=== PATIENT | male | born 1960 | race Two or more races ===

== ENCOUNTER 2019-05-15 15:13 | Inpatient (IN) | payer MEDICAID, OTHER ==
[~2019-05-15] VITALS: Ht 182.9 cm; Wt 99.2 kg
[2019-05-15 16:05] LABS: Basophils # (auto) 0 10 ^3/uL (0-0.2); Basophils % (auto) 0.2 % (0.0-2.0); Eosinophils # (auto) 0 10 ^3/uL (0-0.8); Hematocrit 38.8 % (41.0-53.0); Hemoglobin 12.1 g/dL (13.5-17.5); Lymphocytes # (auto) 0.6 10 ^3/uL (0.4-5.4); Lymphocytes % (auto) 4.9 % (10.0-50.0); Mean Corpuscular Hemoglobin 27.3 pg (28.0-32.0); Mean Corpuscular Hgb Conc. 31.2 g/dL (32.0-36.0); Mean Corpuscular Volume 87.5 fL (80.0-100.0); Monocytes # (auto) 0.9 10 ^3/uL (0-1.3); Monocytes % (auto) 7.4 % (0.0-12.0); Neutrophils % (auto) 87.5 % (37.0-80.0); Platelet Count (auto) 297 10^3/uL (140-450); Red Blood Cells 4.43 10^6/uL (4.5-5.90); Red Cell Distribution Width 18.1 % (11.8-14.3); White Blood Cell 12.6 10^3/uL (4.4-10.8)
[2019-05-15 16:23] LABS: Albumin 3.8 g/dL (3.4-5.0); Calcium 8.6 mg/dL (8.5-10.1)
[2019-05-15 16:28] LABS: BUN/Creatinine Ratio 9.9; Bilirubin, Total 0.4 mg/dL (0.2-1.0); Total Protein 7.9 g/dL (6.4-8.2)
[2019-05-15] MEDS ORDERED: SODIUM CHLORIDE 0.9% 1,000 ML IV ONE ×2 (16:30→19:30)
[2019-05-15] MEDS ORDERED: HYDROmorphone HCL 2 MG/ML VL IV ONE (16:30)
[2019-05-15] MEDS ORDERED: ONDANSETRON HCL 4 MG/2 ML VIAL IV ONE (16:30)
[2019-05-15 16:34] LABS: Potassium 5.9 mmol/L (3.5-5.1)
[2019-05-15] MEDS ORDERED: SODIUM ZIRCONIUM CYCL 10 GM PAK PO ONE (16:45)
[2019-05-15] MEDS ORDERED: ETOMIDATE (2MG/ML) 20ML VIAL IV ONE (16:45)
[2019-05-15] MEDS ORDERED: KETOROLAC TROMETH 15 mg/ml 1ML VL IV ONE (20:30)
[2019-05-15] MEDS ORDERED: ACETAMINOPHEN 325 MG TAB PO PRN (21:30)
[2019-05-15] MEDS ORDERED: ONDANSETRON HCL 4 MG/2 ML VIAL IV PRN (21:30)
[2019-05-15] MEDS ORDERED: TEMAZEPAM 15 MG CAP PO PRN (21:30)
[2019-05-15 21:49] LABS: Hematocrit 31.2 % (41.0-53.0); Hemoglobin 10.4 g/dL (13.5-17.5)
[2019-05-15] MEDS ORDERED: SODIUM CHLORIDE 0.9% 500 ML IV ONE (22:00)
[2019-05-15] MEDS ORDERED: SODIUM CHLORIDE 0.9% 1,000 ML IV SCH (22:00)
[2019-05-15 22:07] LABS: BUN/Creatinine Ratio 15.9; Calcium 7.2 mg/dL (8.5-10.1); Potassium 4.8 mmol/L (3.5-5.1)
--- NOTE | 2019-05-15 23:05 | NUR ---
MS admit from ER [facility]OR[facility] admitted to [facility]. Patient oriented to Sonido Tinsley, primary RN, unit, room, bed, and unit policies regarding patient care and visiting hours. Patient weighed by bedscale and encouraged to call if they need something. Right arm is in sling. The patient c/o 5/10 right shoulder pain and requested medication to relieve pain. Will treat with PRN [place] and reassess. All questions and concerns addressed, patient verbalized understanding.
[2019-05-15] MEDS: HYDROcodone-ACET 5/325MG TAB PO PRN (23:35)
[2019-05-16] VITALS (8 sets, daily range): BP systolic 123–142; BP diastolic 57–87
--- NOTE | 2019-05-16 00:20 | NUR ---
Patient's temperature reassessed and is 99.0 F. Patient asymptomatic. Addendum: 05/17/19 at 0329 by María Dalton RN Correct date is 05/17/19 and correct time is 0000
--- NOTE | 2019-05-16 00:35 | NUR ---
PAIN REASSESSMENT The patient states that his pain has improved after taking the [place]. Currently rates his right shoulder pain 2/10. Will continue to monitor the patient' status.
[2019-05-16] MEDS: PANTOPRAZOLE 40 MG/10 ML VIAL INJ IV SCH ×3 (00:45→21:18)
[2019-05-16] MEDS ORDERED: PANTOPRAZOLE 40 MG/10 ML VIAL INJ IV ONE (00:45)
[2019-05-16] MEDS ORDERED: ATORVASTATIN 20 MG TAB PO ONE (00:45)
--- NOTE | 2019-05-16 01:00 | NUR ---
Patient has been placed on tele. Will retrieve tele box from [facility] room.
--- NOTE | 2019-05-16 01:10 | NUR ---
Tele box #72 has been received and placed on the patient. Patient is ST with a heart rate of 103. Will continue to monitor the patient's status.
[2019-05-16 05:59] LABS: Basophils # (auto) 0 10 ^3/uL (0-0.2); Basophils % (auto) 0.4 % (0.0-2.0); Eosinophils # (auto) 0 10 ^3/uL (0-0.8); Eosinophils % (auto) 0.1 % (0.0-7.0); Hematocrit 28.3 % (41.0-53.0); Hemoglobin 9.4 g/dL (13.5-17.5); Lymphocytes # (auto) 1.9 10 ^3/uL (0.4-5.4); Lymphocytes % (auto) 14.1 % (10.0-50.0); Mean Corpuscular Hemoglobin 28.3 pg (28.0-32.0); Mean Corpuscular Hgb Conc. 33.2 g/dL (32.0-36.0); Mean Corpuscular Volume 85.3 fL (80.0-100.0); Monocytes # (auto) 1.1 10 ^3/uL (0-1.3); Monocytes % (auto) 8.4 % (0.0-12.0); Neutrophils # (auto) 10.1 10 ^3/uL (1.6-8.6); Platelet Count (auto) 195 10^3/uL (140-450); Red Blood Cells 3.31 10^6/uL (4.5-5.90); Red Cell Distribution Width 17.3 % (11.8-14.3); White Blood Cell 13.1 10^3/uL (4.4-10.8)
[2019-05-16 06:18] LABS: Potassium 4.7 mmol/L (3.5-5.1)
[2019-05-16 06:26] LABS: Albumin 2.6 g/dL (3.4-5.0); BUN/Creatinine Ratio 19.2; Bilirubin, Total 0.5 mg/dL (0.2-1.0); Calcium 6.7 mg/dL (8.5-10.1); Total Protein 5.6 g/dL (6.4-8.2)
--- NOTE | 2019-05-16 08:00 | NUR ---
Opening Shift Note Assumed care of patient, awake and alert. No S/S of distress/SOB. Patient c/o pain to the right shoulder, rates it 3/10. Will medicate per MD orders. Instructed on POC and to call for assist PRN. Bed at lowest locked position and call light within reach. Will continue to monitor for changes Q1hr and PRN.
[2019-05-16] MEDS: HYDROcodone-ACET 5/325MG TAB PO PRN ×2 (09:24→16:25)
[2019-05-16] MEDS ORDERED: SODIUM CHLORIDE 0.9% 1,000 ML IV SCH (09:45)
[2019-05-16] MEDS ORDERED: PANTOPRAZOLE 40 MG/10 ML VIAL INJ IV SCH (10:00)
--- NOTE | 2019-05-16 12:10 | NUR ---
Patient is required to be NPO for abdomen US. Patient informed and verbalized understanding.
[2019-05-16 13:10] LABS: Hematocrit 26.6 % (41.0-53.0); Hemoglobin 8.7 g/dL (13.5-17.5)
--- NOTE | 2019-05-16 13:20 | NUR ---
Attempted IV insertion ti left forearm, x3 times. no IV access obtained. Patient tolerated well.
[2019-05-16 13:31] LABS: BUN/Creatinine Ratio 24.9; Calcium 7.1 mg/dL (8.5-10.1); Potassium 4.1 mmol/L (3.5-5.1)
--- NOTE | 2019-05-16 14:00 | NUR ---
IV insertion by Latosha PONCE IV access obtained, via clean sterile technique by inserting 22 gauge catheter at left AC after 2 attempts. IV secured properly. No trauma to site. Patient tolerated well.
--- NOTE | 2019-05-16 16:15 | NUR ---
Patient c/o right shoulder pain, rates it 07/13, will medicate per MD orders. Addendum: 05/16/19 at 1820 by Jazmyne Sepulveda RN re-assessed pain at 17:20, patient states Pain level is at 3/10 and he feels comfortable.
[2019-05-16] MEDS: SODIUM CHLORIDE 0.9% 1,000 ML IV SCH ×2 (16:26→21:18)
--- NOTE | 2019-05-16 18:07 | NUR ---
Urine sample collected and sent to lab via [employer] system.
[2019-05-16 18:13] LABS: Cholesterol 98 mg/dL (< 200)
[2019-05-16 18:15] LABS: HDL Cholesterol 37 mg/dL (40-59); LDL Cholesterol 47 mg/dL (< 100); Triglycerides 128 mg/dL (< 150)
--- NOTE | 2019-05-16 18:15 | NUR ---
Rounds [employer]PER[employer]'s brought patient his dinner tray and patient ate it. Patient was aware of NPO status for upcoming Ultrasound and still ate. will notify radiology department. Addendum: 05/16/19 at 1855 by Jazmyne Sepulveda RN gi tech aware. Test has been postponed until tomorrow 05/17/19. Patient will be placed NPO after midnight. Patient informed/aware. Will notify LASHON PONCE.
[2019-05-16 18:54] LABS: Urine Bacteria NONE SEEN /hpf (None Seen); Urine Blood TRACE /uL (Negative); Urine Specific Gravity 1.019 (1.001-1.035); Urine WBC 2 /hpf (0 - 3)
[2019-05-16 19:09] LABS: Protein, Urine 30.2 mg/dL (0.0-11.9)
--- NOTE | 2019-05-16 20:10 | NUR ---
Opening Shift Note Assumed care of patient, awake and alert. No S/S of distress/SOB or pain. Patient is on 2 liters of oxygen via nasal cannula. Instructed on POC and to call for assist PRN, will continue to monitor for changes Q1hr and PRN. Patient has sling to right arm.
--- NOTE | 2019-05-16 20:15 | NUR ---
Fermin Fan called to give order to keep patient NPO after clear liquid breakfast tomorrow (05/17/19) for possible EGD for tomorrow (05/17/19).
[2019-05-16] MEDS: ATORVASTATIN 20 MG TAB PO SCH (21:18)
[2019-05-16] MEDS: SUCRALFATE 1 GM/10 ML ORAL SUSP PO SCH (21:18)
--- NOTE | 2019-05-16 23:13 | NUR ---
Temperature reassessed and is 99.3 F. Cooling measures taken: ice packs placed underneath patient's armpits, cool wash cloth applied to patient's forehead, and one blanket removed from patient. Patient refuses to remove other blanket and sheet. Will continue to monitor.
--- NOTE | 2019-05-17 00:20 | NUR ---
Patient's temperature reassessed and is 99.0 F. Patient asymptomatic.
[2019-05-17 05:00] VITALS: BP 125/82
[2019-05-17] MEDS: HYDROcodone-ACET 5/325MG TAB PO PRN ×5 (06:17→21:27)
--- NOTE | 2019-05-17 06:19 | NUR ---
PAIN PATIENT STATES PAIN TO RIGHT ARM IS 6/10. PATIENT REQUESTED NORCO NORCO ADMINISTERED ORDERED. SEE EMAR
[2019-05-17 06:21] LABS: Basophils # (auto) 0 10 ^3/uL (0-0.2); Basophils % (auto) 0.3 % (0.0-2.0); Eosinophils # (auto) 0 10 ^3/uL (0-0.8); Eosinophils % (auto) 0.5 % (0.0-7.0); Hemoglobin 7.8 g/dL (13.5-17.5); Lymphocytes # (auto) 1.7 10 ^3/uL (0.4-5.4); Lymphocytes % (auto) 18.7 % (10.0-50.0); Mean Corpuscular Hemoglobin 28.6 pg (28.0-32.0); Mean Corpuscular Hgb Conc. 33.8 g/dL (32.0-36.0); Mean Corpuscular Volume 84.5 fL (80.0-100.0); Monocytes # (auto) 0.7 10 ^3/uL (0-1.3); Monocytes % (auto) 7.7 % (0.0-12.0); Neutrophils # (auto) 6.5 10 ^3/uL (1.6-8.6); Neutrophils % (auto) 72.8 % (37.0-80.0); Platelet Count (auto) 168 10^3/uL (140-450); Red Blood Cells 2.72 10^6/uL (4.5-5.90); Red Cell Distribution Width 17.6 % (11.8-14.3); White Blood Cell 8.9 10^3/uL (4.4-10.8)
[2019-05-17] MEDS: SUCRALFATE 1 GM/10 ML ORAL SUSP PO SCH ×4 (06:27→21:27)
--- NOTE | 2019-05-17 06:30 | NUR ---
IV insertion IV access obtained, via clean sterile technique by inserting 22 gauge catheter at left hand after 2 attempts by Emilee PONCE. IV secured properly. No trauma to site. Patient tolerated well.
[2019-05-17 06:35] LABS: BUN/Creatinine Ratio 30.3; Calcium 7.7 mg/dL (8.5-10.1); Magnesium 2.3 mg/dL (1.6-2.6); Potassium 3.9 mmol/L (3.5-5.1)
--- NOTE | 2019-05-17 07:00 | NUR ---
CLOSING NOTE No S/S of distress/SOB or pain. Patient is on 2 liters of oxygen via nasal cannula. Patient has sling on right arm.
--- NOTE | 2019-05-17 07:30 | NUR ---
Per Dr. Christensen, requesting cardiac clearance for EGD procedure. Will notify pre-op. Addendum: 05/17/19 at 0900 by Jazmyne Sepulveda RN Pre-op aware/informed.
--- NOTE | 2019-05-17 07:35 | NUR ---
Opening shift note Assumed care of patient form primary care nurse María. Patient lying down with eyes closed. Respirations even and non-labored with no s/s of distress. IV flush, patent and intact. Bed in lowest position, wheels locked, with side rails up x2. Patient resting, will continue to monitor.
[2019-05-17 08:00] VITALS: BP 107/74
[2019-05-17] MEDS: SODIUM CHLORIDE 0.9% 1,000 ML IV SCH ×2 (08:00→18:36)
--- NOTE | 2019-05-17 08:00 | NUR ---
patient to stay NPO until after stress-test. Patient informed/ aware.
[2019-05-17] MEDS ORDERED: LIDOCAINE VISCOUS 2% 15ML UD ONE (08:33)
[2019-05-17] MEDS ORDERED: fentaNYL CITRATE 100 MCG/2 ML VL ONE (08:33)
[2019-05-17] MEDS ORDERED: SODIUM CHLORIDE LOCK 10 ML ONE (08:33)
[2019-05-17] MEDS ORDERED: diphenhdrAMINE HCL 50 MG/1 ML VL ONE (08:33)
[2019-05-17] MEDS ORDERED: MIDAZOLAM HCL 5 MG/ML-1ML VIAL ONE (08:33)
[2019-05-17 08:47] VITALS: BP 107/74
[2019-05-17] MEDS ORDERED: ADENOSINE 81 MG in GIVE UN-DILUTED 0 ML IV ONE (09:00)
[2019-05-17] MEDS: PANTOPRAZOLE 40 MG/10 ML VIAL INJ IV SCH ×2 (09:54→21:26)
--- NOTE | 2019-05-17 10:00 | NUR ---
Dr. Ugalde at bedside.
--- NOTE | 2019-05-17 10:45 | NUR ---
Patient stress test
[2019-05-17 10:50] LABS: INR 0.98 (0.9-1.15); Partial Thromboplastin Time 24.6 sec (23.64-32.05)
--- NOTE | 2019-05-17 13:26 | NUR ---
Patient returned Patient sitting up eating lunch and requesting water. No c/o pain or s/s of distress. Provided water/ice in pitcher. Will continue to monitor.
--- NOTE | 2019-05-17 14:00 | NUR ---
Dr. Richard at bedside. requesting to page AL Bernal for cardiac clearance. Awaiting call back. Addendum: 05/17/19 at 1425 by Jazmyne Sepulveda RN AL Bernal aware/informed .
[2019-05-17 16:39] VITALS: BP 105/69
--- NOTE | 2019-05-17 18:51 | NUR ---
closing Note Patient is comforttably resting on bed. No s/s of distress noted/stated. Patient c/o mild right shoulder pain, rates it 3/10. Patient requesting [place]. Pain medications are not due per MD orders. Will endorse to LASHON RN.
--- NOTE | 2019-05-17 19:41 | NUR ---
Opening Shift Note Received report and assumed care of patient. Patient is awake and alert. No signs or symptoms of distress noted. Instructed patient on plan of care and to call for assistance as needed. Will continue to monitor.
[2019-05-17] MEDS: ATORVASTATIN 20 MG TAB PO SCH (21:27)
[2019-05-17 22:00] VITALS: BP 127/79
[2019-05-18] VITALS (11 sets, daily range): BP systolic 104–135; BP diastolic 68–80
[2019-05-18] MEDS: HYDROcodone-ACET 5/325MG TAB PO PRN ×4 (04:08→22:45)
[2019-05-18] MEDS: SODIUM CHLORIDE 0.9% 1,000 ML IV SCH ×2 (05:00→16:38)
--- NOTE | 2019-05-18 05:00 | NUR ---
IV removal Patient removed 22 g IV to the left hand, stated he didn't want the needle to hurt him. Educated patient regarding IV, patient verbalized understanding. IV catheter tip noted to be intact, patient had applied pressure dressing. No bleeding noted. Will continue to monitor.
[2019-05-18 05:35] LABS: Basophils # (auto) 0 10 ^3/uL (0-0.2); Eosinophils # (auto) 0.1 10 ^3/uL (0-0.8); Eosinophils % (auto) 1.1 % (0.0-7.0); Hematocrit 20.7 % (41.0-53.0); Mean Corpuscular Hemoglobin 28.3 pg (28.0-32.0); Monocytes # (auto) 0.6 10 ^3/uL (0-1.3); Neutrophils # (auto) 5.1 10 ^3/uL (1.6-8.6); White Blood Cell 7.8 10^3/uL (4.4-10.8)
[2019-05-18 05:37] LABS: Basophils % (auto) 0.4 % (0.0-2.0); Lymphocytes % (auto) 25.8 % (10.0-50.0); Mean Corpuscular Hgb Conc. 33.3 g/dL (32.0-36.0); Monocytes % (auto) 7.1 % (0.0-12.0); Neutrophils % (auto) 65.6 % (37.0-80.0); Platelet Count (auto) 169 10^3/uL (140-450); Red Blood Cells 2.44 10^6/uL (4.5-5.90); Red Cell Distribution Width 17.5 % (11.8-14.3)
[2019-05-18 05:52] LABS: Potassium 3.8 mmol/L (3.5-5.1)
[2019-05-18 05:58] LABS: Hemoglobin 6.9 g/dL (13.5-17.5)
[2019-05-18 06:01] LABS: BUN/Creatinine Ratio 21.5; Calcium 7.6 mg/dL (8.5-10.1); Magnesium 2.3 mg/dL (1.6-2.6)
--- NOTE | 2019-05-18 06:29 | NUR ---
Low Hemoglobin Level Patient hemoglobin level 6.9. Paged Dr. Ugalde, spoke with Doug Martell. New orders to infuse 2 units of blood, orders read back and verified, will carry out.
[2019-05-18] MEDS: SUCRALFATE 1 GM/10 ML ORAL SUSP PO SCH ×4 (06:32→21:54)
--- NOTE | 2019-05-18 08:00 | NUR ---
Opening Shift Note Assumed care of patient, awake, alert and oriented X4. No S/S of distress/SOB, complains of right shoulder pain6/10, medicated with prescribed pain medication. Tele# 72, sinus rhythm @ 71 bpm. IV X2, left forearm, 22 gauge and 20 gauge, both patent, 20 gauge infusing 0.9% NS @ 100 ml/hr. Left BKA with healed stump. Instructed on POC and to call for assist PRN, verbalized understanding. Bed locked, in lowest position, call light within reach, fall precautions in place, will continue to monitor for changes Q1hr and PRN.
--- NOTE | 2019-05-18 09:28 | NUR ---
PRBC 1st unit of PRBC's started.
[2019-05-18] MEDS: PANTOPRAZOLE 40 MG/10 ML VIAL INJ IV SCH ×2 (09:47→21:54)
--- NOTE | 2019-05-18 10:16 | NUR ---
ROUNDS Dr Ugalde at bedside for rounds, new orders received and followed through. Patient updated on plan of care, verbalized understanding.
--- NOTE | 2019-05-18 12:20 | NUR ---
PRBC 1st unit of PRBC's completed, no reactions noted.
--- NOTE | 2019-05-18 12:30 | NUR ---
PRBC 2nd unit of PRBC's started.
--- NOTE | 2019-05-18 12:40 | NUR ---
NEPHROLOGY Dr Richard at bedside for Nephrology follow up. No new orders received at this time. Patient and daughter at bedside updated on plan of care, verbalized understanding.
--- NOTE | 2019-05-18 15:47 | NUR ---
PRBC 2nd unit of PRBC's completed, no reactions noted.
[2019-05-18 17:19] LABS: Hematocrit 25.7 % (41.0-53.0); Hemoglobin 8.7 g/dL (13.5-17.5)
--- NOTE | 2019-05-18 19:06 | NUR ---
Care endorsed to ROSARIO Reyes, night nurse.
--- NOTE | 2019-05-18 20:00 | NUR ---
open note assumed care of pt. upon entering room pt awake, alert and oriented x4. pt on room air no distress noted or expressed. pt updated on plan of care, to which he had no additional questions at this time. pt bed locked, low and 2x rails up. pt call light in reach, this nurse to round q1hr and prn.
[2019-05-18] MEDS: ATORVASTATIN 20 MG TAB PO SCH (21:54)
[2019-05-19] MEDS: SODIUM CHLORIDE 0.9% 1,000 ML IV SCH ×2 (00:15→10:13)
[2019-05-19 05:36] VITALS: BP 131/83
[2019-05-19 05:42] LABS: Basophils # (auto) 0 10 ^3/uL (0-0.2); Basophils % (auto) 0.5 % (0.0-2.0); Eosinophils # (auto) 0.1 10 ^3/uL (0-0.8); Eosinophils % (auto) 1.6 % (0.0-7.0); Hematocrit 25.9 % (41.0-53.0); Hemoglobin 8.7 g/dL (13.5-17.5); Lymphocytes # (auto) 1.8 10 ^3/uL (0.4-5.4); Lymphocytes % (auto) 29.1 % (10.0-50.0); Mean Corpuscular Hemoglobin 28.9 pg (28.0-32.0); Mean Corpuscular Hgb Conc. 33.5 g/dL (32.0-36.0); Mean Corpuscular Volume 86.1 fL (80.0-100.0); Monocytes # (auto) 0.6 10 ^3/uL (0-1.3); Monocytes % (auto) 9.3 % (0.0-12.0); Neutrophils # (auto) 3.8 10 ^3/uL (1.6-8.6); Neutrophils % (auto) 59.5 % (37.0-80.0); Nucleated Red Blood Cells % 0.1 %; Platelet Count (auto) 192 10^3/uL (140-450); Red Cell Distribution Width 16.6 % (11.8-14.3); White Blood Cell 6.3 10^3/uL (4.4-10.8)
[2019-05-19 05:53] LABS: Calcium 7.9 mg/dL (8.5-10.1); Magnesium 2.1 mg/dL (1.6-2.6)
[2019-05-19 05:57] LABS: BUN/Creatinine Ratio 12.5; Potassium 3.7 mmol/L (3.5-5.1)
[2019-05-19] MEDS: SUCRALFATE 1 GM/10 ML ORAL SUSP PO SCH ×2 (06:21→11:30)
[2019-05-19] MEDS: HYDROcodone-ACET 5/325MG TAB PO PRN ×2 (06:32→14:53)
--- NOTE | 2019-05-19 08:00 | NUR ---
Opening Shift Note Assumed care of patient, awake, alert and oriented X4. No S/S of distress/SOB or pain. Tele# 72, sinus rhythm @ 65 bpm. IV to right forearm, 20 gauge, patent and infusing 0.9% NS @ 100 ml/hr. Left BKA with healed stump. Instructed on POC and to call for assist PRN, verbalized understanding. Bed locked, in lowest position, call light within reach, fall precautions in place, will continue to monitor for changes Q1hr and PRN.
[2019-05-19 08:52] VITALS: BP 123/79
[2019-05-19] MEDS: PANTOPRAZOLE 40 MG/10 ML VIAL INJ IV SCH (11:29)
--- NOTE | 2019-05-19 11:33 | NUR ---
ROUNDS Dr Ugalde at bedside for patient rounds, new orders received and followed through. Patient updated on plan of care, verbalized understanding.
[2019-05-19 13:46] VITALS: BP 129/88
--- NOTE | 2019-05-19 14:11 | NUR ---
[employer] Tube Grader Spoke to Verene with psychologist social, informed patient has a discharge order for today with a wheelchair for home use, verbalized understanding. Informed me she will call me back with an update. Updated patient and daughter at bedside, verbalized understanding.
[2019-05-19 14:28] VITALS: BP 129/88
--- NOTE | 2019-05-19 15:05 | NUR ---
Discharge instructions given as ordered. Encourage to follow up with PMD as instructed. All questions and concerns addressed. Patient verbalized understanding. Medication reconciliation form completed and copy given to patient. IV removed with catheter intact, pressure dressing applied. Patient and daughter at bedside verbalized they did not want to wait on information about a wheelchair, informed per Dr Ugalde, if they did not hear anything to follow up with his primary care doctor about getting a wheelchair, verbalized understanding. Telemetry unit returned to ICU. Patient taken to vehicle via wheelchair with all personal belongings, accompanied by staff and family member. No distress noted at time of departure.
== END 2019-05-19 15:15 | disposition home or self-care (01) | DRG 253 ==
LOC: ER 15:13 → EDBD 15:13 → OVERFLOW 15:14 → WEST WING 23:05 → TELE-WESTW 05-16 00:48
PROVIDERS: ADMIT Nurse Practitioner; ATTEND Internal Medicine
PROC: 0PSFXZZ Reposition Right Humeral Shaft, External Approach (ICD-10-PCS; 2019-05-15)
PROC: 30233N1 Transfusion of Nonautologous Red Blood Cells into Peripheral Vein, Percutaneous Approach (ICD-10-PCS; principal; 2019-05-18)
DX: K92.0 Hematemesis (principal); N17.0 Acute kidney failure with tubular necrosis; I21.A1 Myocardial infarction type 2; M62.82 Rhabdomyolysis; E87.5 Hyperkalemia; S43.014A Anterior dislocation of right humerus, initial encounter; D64.9 Anemia, unspecified; F10.229 Alcohol dependence with intoxication, unspecified; W01.0XXA Fall on same level from slipping, tripping and stumbling without subsequent striking against object, initial encounter; F10.20 Alcohol dependence, uncomplicated; Y90.9 Presence of alcohol in blood, level not specified; N18.9 Chronic kidney disease, unspecified; Z89.512 Acquired absence of left leg below knee; Z90.49 Acquired absence of other specified parts of digestive tract; Y93.89 Activity, other specified; Y92.091 Bathroom in other non-institutional residence as the place of occurrence of the external cause; Y99.8 Other external cause status; Z79.899 Other long term (current) drug therapy; Z71.41 Alcohol abuse counseling and surveillance of alcoholic
CPT/HCPCS: 23650; 36415; 71045; 73020; 73030; 76705; 76775; 78452; 80048; 80053; 80061; 80320; 81001; 82140; 82550; 82570; 83036; 83735; 84156; 84300; 84484; 85014; 85018; 85025; 85610; 85730; 86850; 86900; 86901; 86920; 93005; 93017; 93306; 96374; 96375; 97163; 99152; C9113; G0378; J0153; J2250; J2405

== ENCOUNTER 2021-01-13 18:19 | Emergency (ER) | payer MEDICAID ==
[~2021-01-13] VITALS: Ht 182.9 cm; Wt 108.9 kg
[2021-01-13 21:15] LABS: Basophils # (auto) 0 10 ^3/uL (0-0.2); Basophils % (auto) 0.5 % (0.0-2.0); Eosinophils # (auto) 0.1 10 ^3/uL (0-0.8); Eosinophils % (auto) 1.5 % (0.0-7.0); Hematocrit 46.9 % (41.0-53.0); Hemoglobin 15.5 g/dL (13.5-17.5); Lymphocytes # (auto) 2.4 10 ^3/uL (0.4-5.4); Lymphocytes % (auto) 30.5 % (10.0-50.0); Mean Corpuscular Hemoglobin 31.6 pg (28.0-32.0); Mean Corpuscular Hgb Conc. 33.1 g/dL (32.0-36.0); Mean Corpuscular Volume 95.3 fL (80.0-100.0); Monocytes # (auto) 0.6 10 ^3/uL (0-1.3); Monocytes % (auto) 7.7 % (0.0-12.0); Neutrophils # (auto) 4.7 10 ^3/uL (1.6-8.6); Neutrophils % (auto) 59.8 % (37.0-80.0); Red Blood Cells 4.92 10^6/uL (4.5-5.90); Red Cell Distribution Width 14.4 % (11.8-14.3); White Blood Cell 7.8 10^3/uL (4.4-10.8)
[2021-01-13] MEDS ORDERED: HYDROcodone-ACET 10/325MG TAB PO ONE (21:15)
[2021-01-13 21:30] LABS: Albumin 3.6 g/dL (3.4-5.0); Calcium 8.9 mg/dL (8.5-10.1)
[2021-01-13 21:33] LABS: BUN/Creatinine Ratio 13.6; Bilirubin, Total 0.7 mg/dL (0.2-1.0); Total Protein 7.9 g/dL (6.4-8.2)
[2021-01-13] MEDS ORDERED: ONDANSETRON HCL 4 MG/2 ML VIAL IV ONE (22:15)
[2021-01-13] MEDS ORDERED: MORPHINE SULFATE INJECTION 2 MG/ML SYRG IV ONE (22:15)
[2021-01-14] MEDS ORDERED: MORPHINE SULFATE INJECTION 2 MG/ML SYRG IV ONE
[2021-01-14 02:30] VITALS: BP 137/87
== END 2021-01-14 03:16 | disposition short-term general hospital (02) ==
LOC: ER 18:22
DX: S02.85XA Fracture of orbit, unspecified, initial encounter for closed fracture (principal); S02.40FA Zygomatic fracture, left side, initial encounter for closed fracture; S02.40DA Maxillary fracture, left side, initial encounter for closed fracture; F17.210 Nicotine dependence, cigarettes, uncomplicated; Z20.822 Contact with and (suspected) exposure to COVID-19; V59.49XA Driver of pick-up truck or van injured in collision with other motor vehicles in traffic accident, initial encounter; Y93.89 Activity, other specified; Y92.410 Unspecified street and highway as the place of occurrence of the external cause; Y99.8 Other external cause status
CPT/HCPCS: 36415; 70450; 70486; 71260; 74177; 80053; 85025; 87426; 96374; 96375; 96376; 99285; J2270; J2405